=== PATIENT | male | born 1955 | race Caucasian/White ===

== ENCOUNTER 2024-05-28 16:01 | Outpatient (CLI) | payer BC | END 2024-05-28 16:02 | disposition home or self-care (01) | LOC: BURRAD 16:01 | PROVIDERS: ATTEND Family Medicine | DX: R06.1 Stridor (principal) | CPT/HCPCS: 71046 ==

== ENCOUNTER 2024-08-29 08:01 | Emergency (ER) | payer BC ==
[2024-08-29] MEDS ORDERED: Aspirin Chewable 81 MG TAB ONE (08:30)
[2024-08-29 08:33] LABS: #Basophils 0.1 thou/uL (0.0-0.2); #Eosinophils 0.1 thou/uL (0.0-0.7); #Lymphocytes 1.1 thou/uL (1.20-3.40); #Monocytes 0.6 thou/uL (0.11-0.59); #Neutrophils 5.8 thou/uL (1.40-6.50); %Basophils 1.2 % (0.0-1.0); %Eosinophils 1.1 % (0.0-10.0); %Lymphocytes 14.2 % (21.0-51.0); %Monocytes 7.8 % (0.0-10.0); %Neutrophils 75.7 % (42.0-75.0); Hematocrit 46.9 % (42.0-52.0); Hemoglobin 15.4 g/dL (14.0-18.0); Mean Corpuscular HGB CONC 32.8 g/dL (32.0-36.0); Mean Corpuscular Hemoglobin 29.6 pg (27.0-31.0); Mean Platelet Volume 6.6 fL (7.4-10.4); Platelet Count 160 10x3/uL (130-400); RBC Distribution Width 11.3 % (11.5-14.5); Red Blood Cell (RBC) Count 5.21 mill/uL (4.70-6.10); White Blood Cell (WBC) Count 7.6 10x3/uL (4.8-10.8)
[2024-08-29 08:49] LABS: ALT (SGPT) 18 U/L (8-55); AST (SGOT) 16 U/L (5-34); Albumin 4.4 g/dL (3.4-4.8); Alkaline Phosphatase 76 U/L (40-110); Anion Gap 18 mmol/L (10-20); BUN (Urea Nitrogen) 11 mg/dL (8.4-25.7); Bilirubin, Total 0.9 mg/dL (0.2-1.2); Calc. Creatinine Clearance 0 mL/min (70-130); Calcium 9.8 mg/dL (7.8-10.44); Carbon Dioxide 23 mmol/L (23-31); Chloride 103 mmol/L (98-107); Estimated GFR 75; Globulin 2.8 g/dL (2.4-3.5); Glucose 267 mg/dL (80-115); Potassium 4.5 mmol/L (3.5-5.1); Protein, Total 7.2 g/dL (5.8-8.1); Sodium 139 mmol/L (136-145)
[2024-08-29 08:51] LABS: Troponin I Less than 0.010 ng/mL (< 0.028)
[2024-08-29 09:20] LABS: Bilirubin Negative (Negative); Blood, Urine Negative (Negative); Clarity Clear (Clear); Glucose, Urine (Dipstick) 500 mg/dL (Negative); Ketone, Urine 15 mg/dL (Negative); Leukocyte Negative (Negative); Nitrite Negative (Negative); Protein, Urine (Dipstick) Negative (Neg-Trace); pH, Urine 5.5 (5.0-9.0)
[2024-08-29 09:36] LABS: Bacteria/HPF 2+ HPF (None Seen); CAUTI Indications for Culture Dysuria,urgency,freq; RBC/HPF 0-3 HPF (0-3); Sperm/HPF 1+ HPF (None Seen); Squamous Epithelial 0-3 HPF (0-3); WBC/HPF 0-3 HPF (0-3)
[2024-08-29 09:37] LABS: Urine Culture Reflex No No
[2024-08-29 11:51] LABS: Troponin I Less than 0.010 ng/mL (< 0.028)
== END 2024-08-29 12:18 | disposition home or self-care (01) ==
LOC: BURERS 08:01
DX: R07.89 Other chest pain (principal); I10 Essential (primary) hypertension; I25.2 Old myocardial infarction; Z79.82 Long term (current) use of aspirin; Z79.84 Long term (current) use of oral hypoglycemic drugs; Z79.899 Other long term (current) drug therapy
CPT/HCPCS: 36416; 71045; 80053; 81001; 84443; 84484; 85025; 93005; 94760; 36415-59

== ENCOUNTER 2025-08-26 09:04 | Emergency (ER) | payer BC ==
[2025-08-26] MEDS ORDERED: Acetaminophen 500 MG TAB ONE ×3 (09:34→22:56)
[2025-08-26] MEDS ORDERED: Ondansetron PF 4 MG/2 ML Vial ONE (09:56)
[2025-08-26 10:05] LABS: Chloride 92 mmol/L (98-107); Potassium 3.9 mmol/L (3.5-5.1); Sodium 131 mmol/L (136-145)
[2025-08-26 10:16] LABS: Troponin I 0.044 ng/mL (< 0.028)
[2025-08-26 10:28] LABS: #Basophils 0.1 thou/uL (0.0-0.2); #Eosinophils 0.0 thou/uL (0.0-0.7); #Lymphocytes 0.6 thou/uL (1.20-3.40); #Monocytes 0.5 thou/uL (0.11-0.59); #Neutrophils 5.5 thou/uL (1.40-6.50); %Basophils 2.1 % (0.0-1.0); %Eosinophils 0.0 % (0.0-10.0); %Lymphocytes 8.8 % (21.0-51.0); %Monocytes 7.0 % (0.0-10.0); %Neutrophils 82.1 % (42.0-75.0); Hematocrit 41.5 % (42.0-52.0); Hemoglobin 15.6 g/dL (14.0-18.0); Mean Corpuscular Hemoglobin 30.1 pg (27.0-31.0); Mean Corpuscular Volume 80.3 fl (78.0-98.0); Platelet Adequacy Comment Appears Decreased; Platelet Count 118 10x3/uL (130-400); Red Blood Cell (RBC) Count 5.16 mill/uL (4.70-6.10); White Blood Cell (WBC) Count 6.7 10x3/uL (4.8-10.8)
[2025-08-26 10:55] LABS: ALT (SGPT) 81 U/L (Less than 45); AST (SGOT) 117 U/L (11-34); Albumin 4.4 g/dL (3.1-4.5); Alkaline Phosphatase 66 U/L (40-110); Anion Gap 22 mmol/L (10-20); BUN (Urea Nitrogen) 15 mg/dL (8.4-25.7); Bilirubin, Total 1.2 mg/dL (0.3-1.2); Calc. Creatinine Clearance 0 mL/min (70-130); Calcium 9.0 mg/dL (7.8-10.44); Carbon Dioxide 21 mmol/L (23-31); Globulin 3.1 g/dL (2.4-3.5); Glucose 254 mg/dL (83-110)
[2025-08-26 11:43] LABS: Glucose, Urine (Dipstick) 500 mg/dL (Negative); Leukocyte Negative (Negative); Protein, Urine (Dipstick) 30 mg/dL (Neg-Trace); Specific Gravity, Urine 1.010 (1.005-1.030)
[2025-08-26 11:51] LABS: CAUTI Indications for Culture Dysuria,urgency,freq; RBC/HPF 0-3 HPF (0-3); WBC/HPF 0-3 HPF (0-3)
[2025-08-26 11:52] LABS: Bacteria/HPF 2+ HPF (None Seen)
[2025-08-26 11:53] LABS: Urine Culture Reflex No No
[2025-08-26] MEDS ORDERED: Aspirin Chewable 81 MG TAB ONE (12:42)
[2025-08-26] MEDS ORDERED: Iopamidol 370 76% 100 ML VIAL ONE (12:47)
[2025-08-26 13:36] LABS: Troponin I 0.055 ng/mL (< 0.028)
[2025-08-26] MEDS ORDERED: Ibuprofen 800 MG TAB ONE (19:03)
[2025-08-26 20:08] LABS: Troponin I 0.050 ng/mL (< 0.028)
[2025-08-27] MEDS ORDERED: Ondansetron PF 4 MG/2 ML Vial ONE (05:52)
[2025-08-27 07:15] LABS: Troponin I 0.049 ng/mL (< 0.028)
== END 2025-08-26 09:40 | disposition home or self-care (01) ==
LOC: BURERS 09:04
DX: R11.2 Nausea with vomiting, unspecified (principal); R50.9 Fever, unspecified; R79.89 Other specified abnormal findings of blood chemistry; I10 Essential (primary) hypertension; E11.9 Type 2 diabetes mellitus without complications; I25.2 Old myocardial infarction; E78.00 Pure hypercholesterolemia, unspecified; Z79.82 Long term (current) use of aspirin; Z79.84 Long term (current) use of oral hypoglycemic drugs; Z79.899 Other long term (current) drug therapy
CPT/HCPCS: 36415; 70450; 71045; 74177; 80053; 81001; 83605; 83880; 84484; 85025; 87040; 87428; 93005; 94760; 96361; 96374; 96375; 96376; J2270; J2405; Q0162; Q9967

== ENCOUNTER 2025-10-14 18:03 | Emergency (ER) | payer BC ==
[2025-10-14 18:51] LABS: Glucose, Urine (Dipstick) 250 mg/dL (Negative); Leukocyte Small (Negative); Protein, Urine (Dipstick) Negative (Neg-Trace); Specific Gravity, Urine 1.015 (1.005-1.030)
[2025-10-14 18:55] LABS: Bacteria/HPF 1+ HPF (None Seen); CAUTI Indications for Culture Dysuria,urgency,freq; RBC/HPF 0-3 HPF (0-3); Yeast-Budding 1+ HPF (None Seen); Yeast-Hyphae 1+ HPF (None Seen)
[2025-10-14 18:57] LABS: Urine Culture Reflex Yes Yes
== END 2025-10-14 19:17 | disposition home or self-care (01) ==
LOC: BURERS 18:03
DX: T83.098A Other mechanical complication of other urinary catheter, initial encounter (principal); N39.0 Urinary tract infection, site not specified; I25.2 Old myocardial infarction; E11.9 Type 2 diabetes mellitus without complications; I10 Essential (primary) hypertension; E78.00 Pure hypercholesterolemia, unspecified; Z79.82 Long term (current) use of aspirin; Z79.84 Long term (current) use of oral hypoglycemic drugs; Z79.899 Other long term (current) drug therapy
CPT/HCPCS: 36416; 51702; 81001; 87086